=== PATIENT | female | born 1970 ===

== ENCOUNTER 2019-02-03 15:27 | Emergency (ER) | payer MEDICAID ==
[2019-02-03] MEDS ORDERED: methylPREDNISolone Sodium Succinate 125 MG/2 ML SDV IM STA (15:42)
--- NOTE | 2019-02-03 16:03 | EDM.PDOC ---
ED HPI GENERAL MEDICAL PROBLEM - General Chief Complaint: Allergic Reaction Stated Complaint: ALLERGIC REACTION Time Seen by Provider: 02/03/19 15:45 Source of Information: Reports: Patient History Limitations: Reports: No Limitations - History of Present Illness INITIAL COMMENTS - FREE TEXT/NARRATIVE: Patient presents to ER with hives on her legs. States has had this same issue happen when she visited [place] in the past. She states last year, similar symptoms occurred when here in the summer. She has been here during the winter months and it never happened. Unsure of any specific allergies. States hives are noris pruritic. Has taken Zyrtec and Benadryl. States her throat feels tight at times, mild chest tightness. Denies dysphagia. Symptoms have been ongoing for several days now. No fevers. Has not noted any wheezing. Onset: Gradual Duration: Day(s): Location: Reports: Generalized Severity: Mild Associated Symptoms: Denies: Confusion, Chest Pain, Cough, Fever/Chills, Nausea/ Vomiting, Shortness of Breath Treatments [employer]: Reports: Other Medication(s) (benadryl) Generalized Pain Score (Numeric/FACES): 5 - Related Data Allergies Allergy/AdvReac Type Severity Reaction Status Date / Time No Known Allergies Allergy Verified 02/03/19 15:34 Home Meds: Home Meds hydrOXYzine HCl [hydrOXYzine] 25 mg PO Q8H #30 tab 02/03/19 [Rx] Past Medical History HEENT History: Reports: Allergic Rhinitis Social & Family History - Family History Family Medical History: Noncontributory - Tobacco Use Smoking Status *Q: Never Smoker - Caffeine Use Caffeine Use: Reports: Coffee - Recreational Drug Use Recreational Drug Use: No ED ROS ALLERGIC REACTION - Review of Systems Review Of Systems: See Below Constitutional: Denies: Fever, Chills, Malaise, Weakness HEENT: Denies: Throat Pain, Throat Swelling Respiratory: Denies: Shortness of Breath, Other (tightness in chest and throat) Cardiovascular: Reports: No Symptoms Endocrine: Reports: No Symptoms GI/Abdominal: Reports: No Symptoms : Reports: No Symptoms Musculoskeletal: Reports: No Symptoms Skin: Reports: Urticaria ED EXAM GENERAL NO PERIP PULSE - Physical Exam Exam: See Below Exam Limited By: No Limitations General Appearance: Alert, WD/WN, No Apparent Distress Ears: Normal External Exam, Normal TMs Nose: Normal Inspection, Normal Mucosa, No Blood Throat/Mouth: Normal Inspection, Normal Oropharynx Head: Normocephalic Neck: Normal Inspection, Supple, Non-Tender Respiratory/Chest: No Respiratory Distress, Lungs Clear, Normal Breath Sounds Cardiovascular: Regular Rate, Rhythm GI/Abdominal: Normal Bowel Sounds, Soft, Non-Tender Extremities: Normal Inspection, No Pedal Edema, Normal Capillary Refill Skin Exam: Other (scattered hives on legs) Course - Vital Signs Last Recorded V/S: Last Vital Signs Temp 97.9 F 02/03/19 15:35 Pulse 73 02/03/19 15:35 Resp 16 02/03/19 15:35 BP 113/72 02/03/19 15:35 Pulse Ox 100 02/03/19 15:35 - Orders/Labs/Meds Meds: Medications Discontinued Medications Generic Name Dose Route Start Last Admin Trade Name Pravinq PRN Reason Stop Dose Admin Methylprednisolone Sodium Succinate 125 mg 02/03/19 15:42 02/03/19 16:00 Solu-Medrol IM 02/03/19 15:43 125 mg NOW STA Administration Departure - Departure Time of Disposition: 16:01 Disposition: Home, Self-Care 01 Condition: Good Clinical Impression: Hives - Discharge Information *PRESCRIPTION DRUG MONITORING PROGRAM REVIEWED*: No *COPY OF PRESCRIPTION DRUG MONITORING REPORT IN PATIENT CHRISSY: No Prescriptions: hydrOXYzine HCl [hydrOXYzine] 25 mg PO Q8H #30 tab Referrals: PCP,None [Primary Care Provider] - Forms: ED Department Discharge Additional Instructions: 1. Take Zyrtec 10 mg daily 2. Hydroxyzine 25 mg every 8 hours as needed for itching/hives 3. Push fluids 4. Follow up for persisting concerns.
== END 2019-02-03 16:15 | disposition home or self-care (01) ==
LOC: CC.ED 15:27
DX: L50.9 Urticaria, unspecified (principal)
CPT/HCPCS: 96372; 99282; J2930